=== PATIENT | male | born 2000 | race Caucasian/White ===

== ENCOUNTER 2022-05-22 18:09 | Emergency (ER) | payer BC ==
[2022-05-22] MEDS ORDERED: Zofran 4 MG/2 ML VIAL IV ONE (18:35)
[2022-05-22] MEDS ORDERED: Sodium Chloride 0.9% 1000 ML 1,000 ML IV STA ×2 (18:35→20:55)
[2022-05-22] MEDS ORDERED: MORPHINE SULFATE 4 MG INJ IV ONE (18:35)
--- NOTE | 2022-05-22 18:43 | ERPHSYRPT ---
- History of Present Illness Historian: patient, family Patient Subjective Stated Complaint: PT HERE FOR VOMITNG TODAY SINCE 399, UNABLE TO KEEP ANYTHONG DOWN, DENEIS FEVER, SOME ABD PAIN TO RIGHT SIDE Triage Nursing Assessment: PT ALERT, WALKED IN, RESP EASY, FACE MASK IN PLACE, ABD SOFT, TENDER TO RIGHT SIDE, NO EDEMA NOTED Timing/Duration: yesterday Quality: cramping Abdominal Pain Onset Location: RUQ, RLQ Pain Radiation: no radiation Severity of Pain-Max: moderate Severity of Pain-Current: moderate Modifying Factors: Improves With: nothing Associated Symptoms: loss of appetite, nausea, vomiting Previous symptoms: no prior history Hx Tetanus, Diphtheria Vaccination/Date Given: Yes Hx Influenza Vaccination/Date Given: No Hx Pneumococcal Vaccination/Date Given: No Immunizations Up to Date: Yes <MERCEDES CARDOZO - Last Filed: 05/22/22 18:43> <JUAN C FABIAN - Last Filed: 05/22/22 21:34> - History of Present Illness Time Seen by Provider: 05/22/22 18:41 Physician History: Patient is patient is 21-year-old male without any significant past medical history started having nausea vomiting and abdominal pain since last night mainly in the right lower quadrant and right upper quad area associated with fever and loss of appetite. Patient did not have a same type of symptoms in the past. (MERCEDES CARDOZO) Allergies/Adverse Reactions: cefdinir [From Omnicef] Allergy (Verified 05/22/22 18:26) Home Medications: Loratadine 10 mg [Claritin 10 mg] 1 ea DAILY 05/22/22 [History] Travel Risk - International Travel Have you traveled outside of the country in past 3 weeks: No - Coronavirus Screening Are you exhibiting any of the following symptoms?: Yes Symptoms: Vomiting/Diarrhea Close contact with a COVID-19 positive Pt in past 14-21 Days: No - Vaccine Status Have you recieved a Covid-19 vaccination: Yes [employer]ist: Moderna - Vaccination Dates Date of 2cond Vaccination (if applicable): 2020 <MERCEDES CARDOZO - Last Filed: 05/22/22 18:43> - Review of Systems Constitutional: No Fever, No Chills Eyes: No Symptoms Ears, Nose, & Throat: No Symptoms Respiratory: No Cough, No Dyspnea Cardiac: No Chest Pain, No Edema, No Syncope Abdominal/Gastrointestinal: Abdominal Pain, Nausea, Vomiting, No Diarrhea Genitourinary Symptoms: No Dysuria Musculoskeletal: No Back Pain, No Neck Pain Skin: No Rash Neurological: No Dizziness, No Focal Weakness, No Sensory Changes Psychological: No Symptoms Endocrine: No Symptoms All Other Systems: Reviewed and Negative < Filed: 05/22/22 18:43> - Past Medical History Respiratory History: Asthma Other Medical History: ALLERGY INDUCED ASTHMA - Past Surgical History Past Surgical History: Yes Other Surgical History: TONSILS - Social History Smoking Status: Never smoker Exposure to second hand smoke: No Drug Use: none Patient Lives Alone: No < Filed: 05/22/22 18:43> - Physical Exam General Appearance: no apparent distress, alert Eye Exam: PERRL/EOMI, eyes nml inspection Ears, Nose, Throat Exam: normal ENT inspection, pharynx normal, moist mucous membranes Neck Exam: normal inspection, non-tender, supple, full range of motion Respiratory Exam: normal breath sounds, lungs clear, No respiratory distress Cardiovascular Exam: regular rate/rhythm, normal heart sounds Gastrointestinal/Abdomen Exam: tenderness (RLQ), guarding (RLQ), No distention, No mass Back Exam: normal inspection, normal range of motion, No CVA tenderness, No vertebral tenderness Extremity Exam: normal inspection, normal range of motion, pelvis stable Neurologic Exam: alert, oriented x 3, cooperative, normal mood/affect, nml cerebellar function, sensation nml, No motor deficits Skin Exam: normal color, warm, dry SpO2: 95 < Filed: 05/22/22 18:43> - Nursing Vital Signs Nursing Vital Signs: Initial Vital Signs Temperature 99.0 F 05/22/22 18:25 Pulse Rate 104 H 05/22/22 18:25 Respiratory Rate 18 05/22/22 18:25 Blood Pressure 116/62 05/22/22 18:25 O2 Sat by Pulse Oximetry 95 05/22/22 18:25 Pain Scale Pain Intensity 0 - Course Nursing assessment & vital signs reviewed: Yes - CT Exams Abdomen/Pelvis CT Interpretation: Tele-radiologist Report < Filed: 05/22/22 18:43> - CT Exams Abdomen/Pelvis CT Interpretation: Tele-radiologist Report (CT ab-pelvis neg) <JUAN C FABIAN - Last Filed: 05/22/22 21:34> Ordered Tests: Active Orders 24 hr Category Date Time Status ABDOMEN AND PELVIS W/0 CONTRAS [CT] Stat Exams 05/22/22 19:04 Taken AMYLASE Stat Lab 05/22/22 18:55 Completed CBC W DIFF Stat Lab 05/22/22 18:55 Completed CMP Stat Lab 05/22/22 18:55 Completed LIPASE Stat Lab 05/22/22 18:55 Completed UA W/RFX CULTURE Stat Lab 05/22/22 20:34 Completed Medication Summary Generic Name Dose Route Start Last Admin Trade Name Freq PRN Reason Stop Dose Admin Sodium Chloride 1,000 mls @ 999 mls/hr 05/22/22 20:55 05/22/22 21:02 Sodium Chloride 0.9% 1000 Ml IV 05/22/22 21:55 999 mls/hr .Q1H1M STA Administration Discontinued Medications Generic Name Dose Route Start Last Admin Trade Name Freq PRN Reason Stop Dose Admin Sodium Chloride 1,000 mls @ 999 mls/hr 05/22/22 18:35 05/22/22 20:30 Sodium Chloride 0.9% 1000 Ml IV 05/22/22 19:35 Infused .Q1H1M STA Infusion Sodium Chloride Confirm 05/22/22 19:18 Sodium Chloride 0.9% 1000 Ml Administered 05/22/22 19:19 Dose 1,000 mls @ ud .ROUTE .STK-MED ONE Sodium Chloride Confirm 05/22/22 20:58 Sodium Chloride 0.9% 1000 Ml Administered 05/22/22 20:59 Dose 1,000 mls @ ud .ROUTE .STK-MED ONE Morphine Sulfate 4 mg 05/22/22 18:35 05/22/22 19:24 Morphine Sulfate 4 Mg/Ml Injection IV 05/22/22 18:36 4 mg STAT ONE Administration Morphine Sulfate Confirm 05/22/22 19:17 Morphine Sulfate 4 Mg/Ml Injection Administered 05/22/22 19:18 Dose 4 mg .ROUTE .STK-MED ONE Ondansetron HCl 4 mg 05/22/22 18:35 05/22/22 19:21 Ondansetron Hcl 4 Mg/2 Ml Vial IV 05/22/22 18:36 4 mg STAT ONE Administration Ondansetron HCl Confirm 05/22/22 19:17 Ondansetron Hcl 4 Mg/2 Ml Vial Administered 05/22/22 19:18 Dose 4 mg .ROUTE .STK-MED ONE Lab/Rad Data: Laboratory Result Diagrams 05/22/22 18:55 05/22/22 18:55 Laboratory Results 05/22/22 05/22/22 05/22/22 Range/Units 20:34 18:55 18:55 WBC 12.6 H (4.0-10.5) x10^3/uL RBC 5.12 (4.1-5.6) x10^6/uL Hgb 14.9 (12.5-18.0) g/dL Hct 45.9 (42-50) % MCV 89.6 (78-100) fL MCH 29.1 (26-32) pg MCHC 32.5 (32-36) g/dL RDW 12.3 (11.5-14.0) % Plt Count 247 (150-450) x10^3/uL MPV 11.2 H (7.5-11.0) fL Gran % 89.4 H (36.0-66.0) % Immature Gran % (Auto) 0.4 (0.00-0.4) % Nucleat RBC Rel Count 0.0 (0.00-0.1) % Eos # (Auto) 0.01 (0-0.5) x10^3/uL Immature Gran # (Auto) 0.05 H (0.00-0.03) x10^3u/L Absolute Lymphs (auto) 0.53 L (1.0-4.6) x10^3/uL Absolute Monos (auto) 0.72 (0.0-1.3) x10^3/uL Absolute Nucleated RBC 0.00 (0.00-0.01) x10^3u/L Lymphocytes % 4.2 L (24.0-44.0) % Monocytes % 5.7 (0.0-12.0) % Eosinophils % 0.1 (0.00-5.0) % Basophils % 0.2 (0.0-0.4) % Absolute Granulocytes 11.25 H (1.4-6.9) x10^3/uL Basophils # 0.03 (0-0.4) x10^3/uL Sodium 137 (137-145) mmol/L Potassium 4.2 (3.5-5.1) mmol/L Chloride 106 (98-107) mmol/L Carbon Dioxide 23 (22-30) mmol/L Anion Gap 11.0 (5-15) MEQ/L BUN 14 (9-20) mg/dL Creatinine 0.86 (0.66-1.25) mg/dL Estimated GFR > 60.0 ML/MIN Glucose 100 (74-106) mg/dL Calcium 10.4 H (8.4-10.2) mg/dL Total Bilirubin 2.20 H (0.2-1.3) mg/dL AST 27 (17-59) U/L ALT 29 (0-50) U/L Alkaline Phosphatase 95 (38-126) U/L Serum Total Protein 7.2 (6.3-8.2) g/dL Albumin 4.4 (3.5-5.0) g/dL Amylase 47 (30-110) U/L Lipase 47 (23-300) U/L Urinalys Dipstick Clnc MAIN LAB Urine Color YELLOW (YELLOW) Urine Appearance CLEAR (CLEAR) Urine pH 5.0 (5-6) Ur Specific [place] >=1.030 A (1.005-1.025) POC Urine Protein Conf TRACE A (Negative) Urine Ketones MODERATE-40 A (NEGATIVE) Urine Nitrite NEGATIVE (NEGATIVE) Urine Bilirubin SMALL A (NEGATIVE) Urine Urobilinogen 1 A (0-1) mg/dL Urine Leukocytes NEGATIVE (NEGATIVE) Urine WBC (Auto) 0-2 (0-5) /HPF Urine RBC (Auto) NONE (0-2) /HPF U Epithel Cells (Auto) RARE (FEW) /HPF Urine Bacteria (Auto) NONE SEEN (NEGATIVE) /HPF Urine RBC NEGATIVE (0-5) Raymond/ul Urine Mucus (Auto) SLIGHT A (NEGATIVE) /HPF Ur Culture Indicated? NO Urine Glucose NEGATIVE (NEGATIVE) mg/dL - Progress Progress: improved Counseled pt/family regarding: lab results, diagnosis, need for follow-up, rad results <JUAN C FABIAN - Last Filed: 05/22/22 21:34> - Progress Progress Note: 05/22/22 19:21 Assumed care of pt at 19:00 w N/V stating at 5:30AM and R-sided abdominal pain starting at 17:00. Pain is 3/10 and described as intermittently sharp. He denies hematemesis/diarrhea/melena/hematochezia/dysuria/hematuria/fever/cough/coryza. Nothing makes the pain better or worse. Pt has never had this pain before and has had no abdominal surgeries. Lungs CTA Heart Mildly tachy wo M Abdomen soft/Good BS/Mild R sided TTP wo guarding or rebound 05/22/22 21:32 Pain resolved w 4mg IV MSO4/4mg IV Zofran 1L NS x2 (JUAN C FABIAN) <MERCEDES CARDOZO - Last Filed: 05/22/22 18:43> - Departure Departure Disposition: Home Critical Care Time: No <JUAN C FABIAN - Last Filed: 05/22/22 21:34> - Departure Clinical Impression: Viral illness Condition: Stable Referrals: AGUEDA DUNCAN MD [Primary Care Provider] - Follow up/PCP as directed Instructions: Nausea and Vomiting, Adult (DC) Additional Instructions: Rest/Fluids Zofran for nausea/vomiting Return to ER for increasing pain, inability to hold down fluids, or persistent temperature greater than 100.5 Prescriptions: Ondansetron ODT 4 MG [Zofran Odt 4 mg] 4 mg PO Q6H PRN PRN #10 tablet PRN Reason: Nausea
[2022-05-22 18:57] LABS: Absolute Neutrophil Ct (ANC) 11.25 x10^3/uL (1.4-6.9); Basophil (Absolute #) 0.03 x10^3/uL (0-0.4); Eosinophil % 0.1 % (0.00-5.0); Eosinophil (Absolute #) 0.01 x10^3/uL (0-0.5); Hematocrit 45.9 % (42-50); Hemoglobin 14.9 g/dL (12.5-18.0); Lymphocyte (Absolute #) 0.53 x10^3/uL (1.0-4.6); Lymphocytes % 4.2 % (24.0-44.0); Mean Cell Volume 89.6 fL (78-100); Mean Corpuscular Hemoglobin 29.1 pg (26-32); Mean Corpuscular Hgb Concent. 32.5 g/dL (32-36); Mean Platelet Volume 11.2 fL (7.5-11.0); Monocyte (Absolute #) 0.72 x10^3/uL (0.0-1.3); Monocytes % 5.7 % (0.0-12.0); Neutrophil % 89.4 % (36.0-66.0); Platelet Count 247 x10^3/uL (150-450); Red Blood Count 5.12 x10^6/uL (4.1-5.6); Red Cell Distribution Width 12.3 % (11.5-14.0); White Blood Count 12.6 x10^3/uL (4.0-10.5)
[2022-05-22] MEDS ORDERED: MORPHINE SULFATE 4 MG INJ ONE (19:17)
[2022-05-22] MEDS ORDERED: Zofran 4 MG/2 ML VIAL ONE (19:17)
[2022-05-22 19:18] LABS: ALBUMIN 4.4 g/dL (3.5-5.0); ALKALINE PHOSPHATASE 95 U/L (38-126); AMYLASE 47 U/L (30-110); BLOOD UREA NITROGEN 14 mg/dL (9-20); CHLORIDE 106 mmol/L (98-107); Calcium 10.4 mg/dL (8.4-10.2); Carbon Dioxide 23 mmol/L (22-30); Creatinine 1 0.86 mg/dL (0.66-1.25); EST GLOMERULAR FILTRATION RATE > 60.0 ML/MIN; Glucose 100 mg/dL (74-106); LIPASE 47 U/L (23-300); Potassium 4.2 mmol/L (3.5-5.1); SGOT/AST 27 U/L (17-59); SGPT/ALT 29 U/L (0-50); SODIUM 137 mmol/L (137-145); Total Protein 7.2 g/dL (6.3-8.2)
[2022-05-22] MEDS ORDERED: Sodium Chloride 0.9% 1000 ML 1,000 ML ONE ×2 (19:18→20:58)
[2022-05-22 20:50] LABS: Appearance CLEAR (CLEAR); Bilirubin SMALL (NEGATIVE); Dipstick done @ ? MAIN LAB; Glucose NEGATIVE (NEGATIVE); Ketones MODERATE-40 (NEGATIVE); Nitrite NEGATIVE (NEGATIVE); Protein,Urine Dip TRACE (Negative); RBC NEGATIVE Ery/ul (0-5); Specific Gravity >=1.030 (1.005-1.025); Urobilinogen 1 mg/dL (0-1)
[2022-05-22 20:51] LABS: Bacteria NONE SEEN /HPF (NEGATIVE); Epithelial Cells RARE /HPF (FEW); Mucus SLIGHT /HPF (NEGATIVE); Urine Cultured Indicated? NO; WBC 0-2 /HPF (0-5)
[2022-05-22 22:11] VITALS: BP 112/58; PULSE 111; O2SAT 98
--- NOTE | 2022-05-23 08:52 | XRAY ---
Indication: Right lower quadrant pain, nausea, and vomiting. Multiple contiguous axial images obtained through the abdomen and pelvis without contrast. Comparison: None Lung bases clear. Heart not enlarged. Noncontrasted stomach and bowel loops appear nonobstructed with normal appendix. No free fluid/air. Remaining liver, gallbladder, pancreas, spleen, adrenal glands, kidneys, ureters, and aorta are unremarkable for noncontrast exam. Osseous structures intact. No ventral or inguinal hernias. Impression: Negative CT abdomen/pelvis noncontrast exam. Comment: Preliminary interpretation made by [facility]. No critical discrepancy.
== END 2022-05-22 22:11 | disposition home or self-care (01) ==
LOC: ED 18:09
DX: B34.9 Viral infection, unspecified (principal); R11.2 Nausea with vomiting, unspecified; R10.31 Right lower quadrant pain; R10.11 Right upper quadrant pain; R50.9 Fever, unspecified
CPT/HCPCS: 36000; 36415; 74176; 80053; 81015; 82150; 83690; 85025; 96360; 96361; 96374; 96375; 99284; J2270; J2405